=== PATIENT | female | born 1935 | race Caucasian/White ===

== ENCOUNTER 2021-06-04 09:44 | Emergency (ER) | payer MEDICARE, BC ==
[~2021-06-04] VITALS: Ht 167.6 cm; Wt 70.8 kg
[2021-06-04] MEDS ORDERED: hydrALAZINE 20 MG/ML VIAL. IV ONE (10:15)
[2021-06-04] MEDS ORDERED: cloNIDine HCL 0.1 MG TABLET PO ONE (10:15)
[2021-06-04 10:31] LABS: BASO # 0.1 x10^3/uL (0.0-0.2); BASO % 1 % (0-3); EOS # 0.2 x10^3/uL (0.0-0.7); EOS % 3 % (0-3); HEMATOCRIT 37.3 % (36.0-47.0); HEMOGLOBIN 12.9 g/dL (12.0-15.5); LYMPH # 1.3 x10^3/uL (1.0-4.8); LYMPH % 19 % (24-48); MEAN CORPUSCULAR HEMOGLOBIN 34 pg (25-35); MEAN CORPUSCULAR HGB CONC 35 g/dL (31-37); MEAN CORPUSCULAR VOLUME 97 fL (79-100); MONO # 0.5 x10^3/uL (0.0-1.1); MONO % 7 % (0-9); NEUT # 4.8 x10^3uL (1.8-7.7); NEUT % 70 % (31-73); PLATELET COUNT 256 x10^3/uL (140-400); RED BLOOD COUNT 3.85 x10^6/uL (3.50-5.40); RED CELL DISTRIBUTION WIDTH 12.3 % (11.5-14.5); WHITE BLOOD COUNT 6.9 x10^3/uL (4.0-11.0)
[2021-06-04 10:37] LABS: CALCIUM 8.9 mg/dL (8.5-10.1); CREATININE 1.2 mg/dL (0.6-1.0); GFR 42.6; POTASSIUM 3.8 mmol/L (3.5-5.1)
--- NOTE | 2021-06-04 10:39 | RAD ---
Exam: CT head without contrast. Date: 11/04/2022, comparison:None available Indication: Headache with hypertension Technique: 5 mm axial images of the head were obtained without contrast. Findings: There is low attenuation within the periventricular white matter consistent with chronic small vessel ischemic disease. Prominence of cortical sulci and ventricular system is noted. There is cerebral at rophy. Midline structures are central. No hydrocephalus. No suspicious cerebral edema. No mass lesion or mid line shift is seen. No extra axial fluid collection, intracranial hemorrhage or acute ischemia is de tected. The visualized paranasal sinuses and mastoid air cells are clear. The osseous calvarium appea rs unremarkable. Impression: 1.Chronic small vessel ischemic disease and cerebral atrophy. 2.No acute findings. PQRS Compliance Statement: One or more of the following individualized dose reduction techniques were utilized for this examinat ion: 1. Automated exposure control 2. Adjustment of the mA and/or kV according to patient size 3. Use of iterative reconstruction technique End impression Exam performed: One view chest. Indication: Reason: POPE w/ HTN / Spl. Instructions: / History: Date of Service: 06/04/2021 10:29 AM Comparison: None available. Single AP upright portable view chest findings and impression: Cardiomediastinal silhouette is within limits of normal. There is fullness in the right hilum possib ly a prominent pulmonary artery or a lymph node. There is minimal blunting of the right costophrenic angle. No acute infiltrates or pneumothorax is detected. The bony structures are normal. Impression: Fullness right hilum may represent a prominent pulmonary artery or a hilar lymph node. Evaluation wit h CT chest may be obtained to further evaluate. Electronically signed by: Hansa Landry MD (06/04/2021 10:37 AM) [facility] [place]
[2021-06-04 10:50] LABS: ALBUMIN 3.5 g/dL (3.4-5.0); MAGNESIUM 2.2 mg/dL (1.8-2.4); TOTAL BILIRUBIN 0.5 mg/dL (0.2-1.0)
--- NOTE | 2021-06-04 11:27 | PHYS DOC ---
Past History Past Medical History: High Cholesterol, Hypertension, Hypothyroid (MARLENE WILSON) Past Surgical History: Cholecystectomy, Hysterectomy (MARLENE WILSON) Alcohol Use: None (MARLENE WILSON) General Adult EDM: Chief Complaint: MULTIPLE COMPLAINTS HPI: HPI: Patient is an 85-year-old female with past medical history of HTN, HLD, hypothyroid who presents with headache, dizziness, elevated blood pressure reading at home. Patient's family members are at bedside and aid in providing history. Per family members, patient is currently having changes made to her hypertensive medication regimen. She was on a diuretic, but experienced electrolyte abnormalities. She was taken off of this diuretic and placed on losartan. Patient has been medicine compliant, however has elevated blood pressure this morning to 220s/90s. Patient describes her headache as moderate amount of pain around her forehead. She also reports associated shortness of breath and left-sided anterolateral neck pain. Patient denies chest pain, palpitations, cough, photophobia, phonophobia. (MARLENE WILSON) Review of Systems: Review of Systems: Constitutional: Denies fever, chills or generalized weakness Eyes: Denies change in visual acuity, visual field deficits or discharge HENT: Denies ear pain, nasal congestion or sore throat Respiratory: See HPI Cardiovascular: Denies chest pain, palpitations or edema GI: Denies abdominal pain, nausea, vomiting, bloody stools or diarrhea : Denies dysuria or hematuria Musculoskeletal: Denies back pain or joint pain Integument: Denies rash or other skin lesion Neurologic: See HPI (MARLENE WILSON) Current Medications: Current Meds: Current Medications Medications (Trade) Dose Ordered Sig/Jeff Start Time Stop Time Status Last Admin Dose Admin Clonidine HCl (Catapres) 0.1 mg 1X ONCE 06/04/21 10:15 06/04/21 10:16 DC 06/04/21 10:15 0.1 MG Hydralazine HCl (Apresoline) 10 mg 1X ONCE 06/04/21 10:15 06/04/21 10:16 DC 06/04/21 10:15 10 MG (MARLENE WILSON) Allergies: Allergies: Allergies Coded Allergies Type Severity Reaction Last Updated Verified No Known Drug Allergies 06/04/21 No (MARLENE WILSON) Physical Exam: PE: Constitutional: Well developed, well nourished, no acute distress, non-toxic appearance. HENT: Normocephalic, atraumatic, bilateral external ears normal, nose normal. Eyes: PERRL, EOMI, conjunctiva normal, no discharge. Neck: Normal range of motion, no tenderness, supple, no stridor. Cardiovascular: Heart regular rate and rhythm. No apparent murmurs, rubs or gallops. Carotid pulses symmetrical. Lungs & Thorax: Bilateral breath sounds clear to auscultation. Skin: Warm, dry, no erythema, no rash. Extremities: No tenderness, no cyanosis, no clubbing, ROM intact, no edema. Neurologic: Alert and oriented x4, no focal deficits noted. (MARLENE WILSON) Current Patient Data: Labs: Laboratory Tests Test 06/04/21 10:14 White Blood Count 6.9 x10^3/uL (4.0-11.0) Red Blood Count 3.85 x10^6/uL (3.50-5.40) Hemoglobin 12.9 g/dL (12.0-15.5) Hematocrit 37.3 % (36.0-47.0) Mean Corpuscular Volume 97 fL (79-100) Mean Corpuscular Hemoglobin 34 pg (25-35) Mean Corpuscular Hemoglobin Concent 35 g/dL (31-37) Red Cell Distribution Width 12.3 % (11.5-14.5) Platelet Count 256 x10^3/uL (140-400) Neutrophils (%) (Auto) 70 % (31-73) Lymphocytes (%) (Auto) 19 % (24-48) L Monocytes (%) (Auto) 7 % (0-9) Eosinophils (%) (Auto) 3 % (0-3) Basophils (%) (Auto) 1 % (0-3) Neutrophils # (Auto) 4.8 x10^3uL (1.8-7.7) Lymphocytes # (Auto) 1.3 x10^3/uL (1.0-4.8) Monocytes # (Auto) 0.5 x10^3/uL (0.0-1.1) Eosinophils # (Auto) 0.2 x10^3/uL (0.0-0.7) Basophils # (Auto) 0.1 x10^3/uL (0.0-0.2) Sodium Level 140 mmol/L (136-145) Potassium Level 3.8 mmol/L (3.5-5.1) Chloride Level 106 mmol/L (98-107) Carbon Dioxide Level 28 mmol/L (21-32) Anion Gap 6 (6-14) Blood Urea Nitrogen 25 mg/dL (7-20) H Creatinine 1.2 mg/dL (0.6-1.0) H Estimated GFR (Cockcroft-Gault) 42.6 BUN/Creatinine Ratio 21 (6-20) H Glucose Level 126 mg/dL (70-99) H Calcium Level 8.9 mg/dL (8.5-10.1) Magnesium Level 2.2 mg/dL (1.8-2.4) Total Bilirubin 0.5 mg/dL (0.2-1.0) Aspartate Amino Transferase (AST) 17 U/L (15-37) Alanine Aminotransferase (ALT) 17 U/L (14-59) Alkaline Phosphatase 60 U/L (46-116) Troponin I High Sensitivity 13 ng/L (4-50) TY-Bsm-I-Type Natriuretic Peptide 911 pg/mL (0-449) H Total Protein 7.0 g/dL (6.4-8.2) Albumin 3.5 g/dL (3.4-5.0) Albumin/Globulin Ratio 1.0 (1.0-1.7) Vital Signs: Vital Signs Date Time Temp Pulse Resp B/P (MAP) Pulse Ox O2 Delivery O2 Flow Rate FiO2 06/04/21 12:27 75 155/79 (104) 98 Room Air 06/04/21 11:58 75 16 166/81 (109) 97 06/04/21 11:32 77 16 171/94 (119) 97 Room Air 06/04/21 11:01 74 16 185/91 (122) 98 Room Air 06/04/21 10:15 67 205/91 06/04/21 10:15 66 205/91 06/04/21 09:56 97.7 66 16 224/91 (135) 99 Room Air (MARLENE WILSON) EKG: EKG: EKG Interpreted by Dr. Wilson at 1039: Regular rate and rhythm 66 bpm with no ectopic beats. QT 430 ms/QTc 453 ms. No STEMI. (MARLENE WILSON) Radiology/Procedures: Radiology/Procedures: Exam: CT head without contrast. Date: 11/04/2022, comparison:None available Indication: Headache with hypertension Technique: 5 mm axial images of the head were obtained without contrast. Findings: There is low attenuation within the periventricular white matter consistent with chronic small vessel ischemic disease. Prominence of cortical sulci and ventricular system is noted. There is cerebral atrophy. Midline structures are central. No hydrocephalus. No suspicious cerebral edema. No mass lesion or midline shift is seen. No extra axial fluid collection, intracranial hemorrhage or acute ischemia is detected. The visualized paranasal sinuses and mastoid air cells are clear. The osseous calvarium appears unremarkable. Impression: 1.Chronic small vessel ischemic disease and cerebral atrophy. 2.No acute findings. PQRS Compliance Statement: One or more of the following individualized dose reduction techniques were utilized for this examination: 1. Automated exposure control 2. Adjustment of the mA and/or kV according to patient size 3. Use of iterative reconstruction technique End impression Exam performed: One view chest. Indication: Reason: POPE w/ HTN / Spl. Instructions: / History: Date of Service: 06/04/2021 10:29 AM Comparison: None available. Single AP upright portable view chest findings and impression: Cardiomediastinal silhouette is within limits of normal. There is fullness in the right hilum possibly a prominent pulmonary artery or a lymph node. There is minimal blunting of the right costophrenic angle. No acute infiltrates or pneumo thorax is detected. The bony structures are normal. Impression: Fullness right hilum may represent a prominent pulmonary artery or a hilar lymph node. Evaluation with CT chest may be obtained to further evaluate. Electronically signed by: Hansa Landry MD (06/04/2021 10:37 AM) [facility] (MARLENE WILSON) Heart Score: C/O Chest Pain: No (MARLENE WILSON) Course & Med Decision Making: Course & Med Decision Making Pertinent Labs and Imaging studies reviewed. (See chart for details) Patient is an 85-year-old female with past medical history that does include hypertension who presents with symptomatic hypertension. Patient is currently undergoing modifications in her hypertensive medication regimen, and does not feel it is effective at this time. Work-up today will include labs, EKG, chest x-ray, urinalysis, head CT. Family states patient does have history of decreased renal function. Work-up today is reassuring. Patient is instructed to follow-up with her primary care provider regarding right-sided pulmonary opacity seen on chest x- ray. She will be provided with 0.1 clonidine tablets for breakthrough high blood pressure. Patient and family were given clear instruction on how and when to use this medication. Family states they will be visiting the primary care doctor tomorrow. Strict return precautions were provided. Patient and her family understand and are agreeable to discharge plan. (MARLENE WILSON) Dragon Disclaimer: Dragon Disclaimer: This electronic medical record was generated, in whole or in part, using a voice recognition dictation system. (MARLENE WILSON) Departure Departure: Impression: Primary Impression: Hypertensive urgency Additional Impressions: Right pulmonary lesion History of decreased renal function Disposition: HOME / SELF CARE / HOMELESS Condition: IMPROVED Referrals: TRISTAN FIERRO DO (PCP) Patient Instructions: Hypertension, [id number] Additional Instructions: EMERGENCY DEPARTMENT GENERAL DISCHARGE INSTRUCTIONS Thank you for coming to [facility] (ED) today and trusting us with you care. We trust that you had a positive experience in our Emergency Department. If you wish to speak to the department management, you may call the director at [phone]. YOUR FOLLOW UP INSTRUCTIONS ARE FOLLOWS: 1. Follow up with your primary care doctor. If you do not have a primary doctor, please ask for a resource list of physicians or clinics that may be able to assist you with follow up care. 2. The emergency provider has interpreted your imaging studies, if any were ordered. The radiology business continuity specialist also reviewed them. If there is a change in the findings, you will be notified in 48 hours when at all possible. 3. If a lab test or culture has been done, your results will be reviewed and you will be notified if you need a change in treatment. 4. TAKE CLONIDINE TABLET UP TO 2x PER DAY IF BLOOD PRESSURE IS ABOVE 180/110. Keep a blood pressure log when measured to take with your to your family doctor's office appointment. 5. Follow instructions verbalized to you and refer to the printouts if needed. ADDITIONAL INSTRUCTIONS AND INFORMATION: 1. Your care today has been supervised by a physician who is specially trained in emergency care. Many problems require more than one evaluation for a complete diagnosis and treatment. We recommend that you schedule your follow up appointment as recommended to ensure complete treatment of you illness or injury. If you are unable to obtain follow up care and continue to have a problem, or if your condition worsens, we recommend that you return to the ED. 2. We are not able to safely determine your condition over the phone nor are we able to give sound medical advice over the phone. For these safety reasons, if you call for medical advice we will ask you to come to the ED for further evaluation. 3. If you have any questions regarding these discharge instructions please call the ED at [phone]. SAFETY INFORMATION: In the interest of safety, wellness, and injury prevention; we encourage you to wear your seat belt, if you smoke; quite smoking, and we encourage family to use a protective helmet for bicycling and other sporting events that present an increased risk for head injury. IF YOUR SYMPTOMS WORSEN OR NEW SYMPTOMS DEVELOP, OR YOU HAVE CONCERNS ABOUT YOUR CONDITION; OR IF YOUR CONDITION WORSENS WHILE YOU ARE WAITING FOR YOUR FOLLOW UP APPOINTMENT; EITHER CONTACT YOUR PRIMARY CARE DOCTOR, THE PHYSICIAN WHOSE NAME AND NUMBER YOU WERE GIVEN, OR RETURN TO THE ED IMMEDIATELY. Scripts Clonidine Hcl (CLONIDINE HCL) 0.1 Mg Tablet 0.1 MG PO 1-2XD for HTN, #10 TAB Take 1 tablet by mouth for blood pressure reading above 180/110. Max 2 tablets/day. Prov: MARLENE WILSON 06/04/21 Attending Signature Attending Signature I have reviewed the PA/TAB MACHINE OPERATOR's note and plan of care. I was available for consultation as needed during the patient's visit in the emergency department. I agree with the clinical impression, plan, and disposition. (GONZALO WILSON DO) MARLENE WILSON Jun 04, 2021 11:27 GONZALO WILSON DO Jun 05, 2021 00:54
[2021-06-04] MEDS ORDERED: ACETAMINOPHEN 500 MG TABLET PO ONE (11:45)
[2021-06-04 12:08] LABS: BACTERIA,URINE 0 /HPF (0-FEW); CLARITY,URINE CLEAR; COLOR,URINE YELLOW; GLUCOSE,URINE NEG (NEG); NITRITE,URINE NEG (NEG); SQUAMOUS EPITHELIAL CELL,UR FEW /LPF; UROBILINOGEN,URINE 0.2 mg/dL (0.2 mg/dL)
[2021-06-04 12:27] VITALS: BP 155/79
[2021-06-04] MEDS ORDERED: CLON0.1T PO (12:33)
--- NOTE | 2021-06-04 20:25 | EKG ---
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
== END 2021-06-04 12:41 | disposition home or self-care (01) ==
LOC: ER 09:44
DX: I16.0 Hypertensive urgency (principal); J98.4 Other disorders of lung; E78.00 Pure hypercholesterolemia, unspecified; I10 Essential (primary) hypertension; E03.9 Hypothyroidism, unspecified
CPT/HCPCS: 36415; 70450; 71045; 80053; 81001; 82947; 83735; 83880; 84484; 85025; 93005; 96374; 99285; J0360